=== PATIENT | male | born 1955 | race Caucasian/White ===

== ENCOUNTER 2021-05-03 04:31 | Inpatient (IN) | payer OTHER ==
[2021-05-02 15:31] VITALS: BMI 31.9
[2021-05-03 07:37] LABS: HEMATOCRIT 28.5 % (35.4-49); HEMOGLOBIN 9.2 GM/dL (11.7-16.9); MCH 22.5 pg (25.7-33.7); MCHC 32.3 g/dl (32.0-35.9); MEAN CELL VOLUME 69.7 fl (80-96); MEAN PLT VOLUME 7.6 fl (7.5-11.1); PLATELET COUNT 249 10^3/uL (134-434); RBC 4.09 M/mm3 (4.00-5.60)
[2021-05-03 07:46] LABS: INR 1.02 (0.83-1.09); PROTHROMBIN TIME (PATIENT) 11.9 SEC (9.7-13.0)
[2021-05-03] MEDS ORDERED: HEPARIN NA (PORCINE) 5,000 UNITS/ML 1ML VIAL ONE ×2 (07:52→12:09)
[2021-05-03 07:58] LABS: CALCIUM 9.1 mg/dL (8.5-10.1)
[2021-05-03 07:59] LABS: ALBUMIN 3.2 g/dl (3.4-5.0); BLOOD UREA NITROGEN 13.8 mg/dL (7-18)
[2021-05-03] MEDS ORDERED: CEFAZOLIN 2 GM in DEXTROSE 5%-WATER - 100 ML IVPB ONE (08:00)
[2021-05-03 08:02] LABS: BILIRUBIN,TOTAL 0.6 mg/dL (0.2-1); CREATININE 1.3 mg/dL (0.55-1.3); TOT PROT 7.6 g/dl (6.4-8.2)
[2021-05-03] MEDS ORDERED: ceFAZolin SODIUM 1 GM VIAL ONE (08:11)
[2021-05-03] MEDS ORDERED: ONDANSETRON 4 MG/2 ML VIAL IVPUSH PRN (09:12)
[2021-05-03] MEDS ORDERED: LIDOCAINE HCL/PF 2% SDV 5ML VIAL ONE (09:20)
[2021-05-03] MEDS ORDERED: ROCURONIUM BROMIDE 50 MG/5 ML SYRINGE ONE ×2 (09:21→10:51)
[2021-05-03] MEDS ORDERED: PROPOFOL 20 ML ONE (09:21)
[2021-05-03] MEDS ORDERED: MIDAZOLAM HCL 2 MG/2 ML SINGLE DOSE VIAL ONE (09:21)
[2021-05-03] MEDS ORDERED: ceFAZolin SODIUM 1 GM VIAL IVPB ONE (09:29)
[2021-05-03] MEDS ORDERED: NEOSTIGMINE METHYLSULFATE 0.5 MG/ML - 10 ML MDV ONE (13:21)
[2021-05-03] MEDS ORDERED: GLYCOPYRROLATE 0.2 MG/1 ML VIAL ONE (13:21)
[2021-05-03] MEDS ORDERED: oxyCODONE HCL 5 MG TABLET PO PRN (14:15)
[2021-05-03] MEDS ORDERED: ACETAMINOPHEN 325 MG TABLET (FP) PO PRN (14:15)
[2021-05-03] MEDS: LACTATED RINGERS SOLUTION 1,000 ML IV SCH ×2 (15:33→23:31)
[2021-05-03 21:28] LABS: BASO % 0.2 % (0-2.0); EOS % 0.1 % (0-4.5); HEMATOCRIT 24.2 % (35.4-49); HEMOGLOBIN 7.8 GM/dL (11.7-16.9); LYMPH % 9.2 % (8-40); MCH 21.8 pg (25.7-33.7); MCHC 32.1 g/dl (32.0-35.9); MEAN CELL VOLUME 67.9 fl (80-96); MEAN PLT VOLUME 7.4 fl (7.5-11.1); MONO % 7.6 % (3.8-10.2); NEUT % 82.9 % (42.8-82.8); PLATELET COUNT 208 10^3/uL (134-434); RBC 3.57 M/mm3 (4.00-5.60); RDW 17.1 % (11.9-15.9); WHITE BLOOD COUNT 11.8 K/mm3 (4.0-10.0)
[2021-05-03 21:51] LABS: CALCIUM 8.6 mg/dL (8.5-10.1)
[2021-05-03 21:52] LABS: BLOOD UREA NITROGEN 12.9 mg/dL (7-18)
[2021-05-03 21:55] LABS: CREATININE 1.5 mg/dL (0.55-1.3)
[2021-05-03 22:20] LABS: ANISOCYTOSIS 1+; MACROCYTOSIS 0; OVALOCYTE 1+
[2021-05-03] MEDS: CARVEDILOL 6.25 MG TABLET (FP) PO SCH (23:00)
[2021-05-04 07:07] LABS: BASO % 0.3 % (0-2.0); EOS % 0.2 % (0-4.5); HEMATOCRIT 23.3 % (35.4-49); HEMOGLOBIN 7.7 GM/dL (11.7-16.9); LYMPH % 10.8 % (8-40); MCH 22.5 pg (25.7-33.7); MCHC 32.8 g/dl (32.0-35.9); MEAN CELL VOLUME 68.7 fl (80-96); MEAN PLT VOLUME 8.2 fl (7.5-11.1); MONO % 9.4 % (3.8-10.2); NEUT % 79.3 % (42.8-82.8); PLATELET COUNT 194 10^3/uL (134-434); RDW 16.7 % (11.9-15.9); WHITE BLOOD COUNT 12.1 K/mm3 (4.0-10.0)
[2021-05-04 07:19] LABS: ALBUMIN 2.8 g/dl (3.4-5.0)
[2021-05-04 07:21] LABS: BLOOD UREA NITROGEN 11.9 mg/dL (7-18); CALCIUM 8.6 mg/dL (8.5-10.1); MAGNESIUM 1.8 mg/dL (1.8-2.4)
[2021-05-04 07:23] LABS: CREATININE 1.3 mg/dL (0.55-1.3); PHOSPHOROUS 2.7 mg/dL (2.5-4.9)
[2021-05-04 07:25] LABS: BILIRUBIN,TOTAL 0.8 mg/dL (0.2-1); TOT PROT 6.6 g/dl (6.4-8.2)
[2021-05-04] MEDS: LACTATED RINGERS SOLUTION 1,000 ML IV SCH (09:33)
[2021-05-04] MEDS: CARVEDILOL 6.25 MG TABLET (FP) PO SCH (09:36)
[2021-05-04] MEDS ORDERED: HYDROCHLOROTHIAZIDE 25 MG TABLET (FP) PO SCH (10:00)
[2021-05-04] MEDS ORDERED: PATIENT'S OWN MEDICATION (NON-FORMULARY) (Lisinopril/Hydrochlorothiazide [Lisinopril-Hctz PO SCH (10:00)
[2021-05-04] MEDS ORDERED: LISINOPRIL 20 MG TABLET PO SCH (10:00)
[2021-05-04 17:21] LABS: HEMATOCRIT 26.7 % (35.4-49); HEMOGLOBIN 8.7 GM/dL (11.7-16.9); MCH 23.2 pg (25.7-33.7); MCHC 32.5 g/dl (32.0-35.9); MEAN CELL VOLUME 71.3 fl (80-96); MEAN PLT VOLUME 7.3 fl (7.5-11.1); PLATELET COUNT 184 10^3/uL (134-434); RBC 3.74 M/mm3 (4.00-5.60); RDW 17.9 % (11.9-15.9); WHITE BLOOD COUNT 14.4 K/mm3 (4.0-10.0)
[2021-05-04 18:05] VITALS: BP 139/88; PULSE 78; TEMP 98.8
== END 2021-05-04 18:05 | disposition home health service (06) | DRG 271 ==
LOC: J2C 04:31 → EDSTATUS 09:00 → J2W 15:49 → JICU 16:16
PROVIDERS: ADMIT Surgery Vascular Surgery; ATTEND Surgery Vascular Surgery
PROC: 047F3DZ Dilation of Left Internal Iliac Artery with Intraluminal Device, Percutaneous Approach (ICD-10-PCS; 2021-05-03)
PROC: 047E3DZ Dilation of Right Internal Iliac Artery with Intraluminal Device, Percutaneous Approach (ICD-10-PCS; 2021-05-03)
PROC: 047034Z Dilation of Abdominal Aorta with Drug-eluting Intraluminal Device, Percutaneous Approach (ICD-10-PCS; 2021-05-03)
PROC: 30233N1 Transfusion of Nonautologous Red Blood Cells into Peripheral Vein, Percutaneous Approach (ICD-10-PCS; 2021-05-03)
PROC: B41DZZZ Fluoroscopy of Aorta and Bilateral Lower Extremity Arteries (ICD-10-PCS; 2021-05-03)
PROC: 04LF3DZ Occlusion of Left Internal Iliac Artery with Intraluminal Device, Percutaneous Approach (ICD-10-PCS; principal; 2021-05-03 09:00)
DX: I72.3 Aneurysm of iliac artery (principal); D62 Acute posthemorrhagic anemia; I10 Essential (primary) hypertension
CPT/HCPCS: 36415; 36430; 76000-TC-FY; 80048; 80053; 83735; 84100; 85025; 85027; 85610; 86850; 86900; 86901; 86922; 94760; 97116-GP; 97161-GP; J1644; P9058

== ENCOUNTER 2022-05-21 02:25 | Emergency (ER) | payer OTHER ==
[2022-05-21 02:37] VITALS: PULSE 86; RESP 18; TEMP 98.8; BMI 31.9
[2022-05-21 03:18] VITALS: BP 94/60
[2022-05-21] MEDS ORDERED: ACETAMINOPHEN 325 MG TABLET (FP) PO ONE (03:25)
[2022-05-21] MEDS ORDERED: ACETAMINOPHEN 325 MG TABLET (FP) ONE (03:27)
== END 2022-05-21 03:42 | disposition home or self-care (01) ==
LOC: FER 02:25
DX: J02.9 Acute pharyngitis, unspecified (principal)
CPT/HCPCS: 99283-25